=== PATIENT | male | born 1940 | race Caucasian/White ===

== ENCOUNTER 2018-08-23 09:55 | Emergency (ER) | payer OTHER ==
[2018-08-23] MEDS ORDERED: NS 1,000 ML IV ONE (10:19)
[2018-08-23 10:37] LABS: PLATELET COUNT 149 10^3/uL (150-400)
--- NOTE | 2018-08-23 10:50 | EDPHY ---
H & P Stated Complaint: syncope Time Seen by Provider: 08/23/18 10:18 HPI/ROS: CHIEF COMPLAINT: Syncopal episode, diarrhea, lip abrasion HISTORY OF PRESENT ILLNESS: This is a healthy 78-year-old male who developed profuse watery diarrhea during the night. He had multiple episodes of nonbloody diarrhea. Today he was walking to the kitchen to drink water as he felt dehydrated and had a syncopal event. The patient fell and struck his upper lip on a chair. The patient denies any complaints of acute headache. He is not anticoagulated. He denies any recent antibiotic use or travel outside the [place]. The patient takes no regular medications. He has no history of heart or lung disease. Past medical history is only significant for a acoustic neuroma resection and prostate cancer surgery. The patient denies any fever or dysuria. He has no complaints of back pain. He denies any acute numbness or weakness. He has no complaints of neck pain. REVIEW OF SYSTEMS: A comprehensive 10 point review of systems is otherwise negative aside from elements mentioned in the history of present illness. Source: Patient Exam Limitations: No limitations - Personal History Current Tetanus Diphtheria and Acellular Pertussis (TDAP): Yes Tetanus Vaccine Date: 2004 - Medical/Surgical History Hx Asthma: No Hx Chronic Respiratory Disease: No Hx Diabetes: No Hx Cardiac Disease: No Hx Renal Disease: No Hx Cirrhosis: No Hx Alcoholism: No Hx HIV/AIDS: No Hx Splenectomy or Spleen Trauma: No Other PMH: PMH: EAR ISSUES/ ACOUSTIC neuroma, BPH/Prostate removal. - Social History Smoking Status: Never smoked - Physical Exam Exam: General Appearance: Alert, no distress Head: Atraumatic Eyes: Pupils equal, round, reactive ENT, Mouth: Superficial abrasion noted to upper lip, no intraoral laceration noted Neck: Nontender, trachea midline Respiratory: No chest wall tender, no subcutaneous air, lungs clear bilaterally Cardiovascular: Regular rate and rhythm Abdomen: Abdomen is soft and nontender, pelvis stable Skin: No lacerations, No abrasion Back: No midline T/L/S pain Extremities: Nontender, full range of motion Neurological: A&Ox3, normal motor function, normal sensory exam Constitutional: Initial Vital Signs Temperature (C) 36.9 C 08/23/18 10:02 Heart Rate 94 08/23/18 10:02 Respiratory Rate 18 08/23/18 10:02 Blood Pressure 157/80 H 08/23/18 10:02 O2 Sat (%) 94 08/23/18 10:02 O2 Delivery Mode Room Air Allergies/Adverse Reactions: renteria meat Allergy (Uncoded 05/18/15 18:56) Home Medications: Medication Instructions Recorded NK [No Known Home Meds] 08/23/18 Medical Decision Making - Diagnostics EKG Interpretation: EKG: Complete interpretation has been separately recorded in the [employer] archive. Summary impression: Sinus rhythm, rate 93, no ischemic changes or arrhythmia noted ED Course/Re-evaluation: Patient arrives emergency department after syncopal event which resulted in injury to his upper lip. The patient has no evidence of closed head injury. I have cleared his cervical spine via nexus criteria. The patient has no risk factors for Clostridium difficile colitis. Patient has no complaints of chest pain or shortness of breath. The patient's vital signs are stable. The patient 's EKG demonstrates no evidence of an arrhythmia. The remainder of his laboratory studies including serum chemistries, basic metabolic panel and troponin are normal. The patient was placed on a car supplier. He had an IV established. She received 2 L of normal saline. The patient was kept in the emergency department without recurrent symptoms. He is tolerating meals at this point time. He is ambulatory without symptoms of recurrent syncope. Patient will be discharged home after a likely vasovagal episode in the setting of hypokalemia. He has a benign abdominal examination. There is nothing to suggest neuro cardiac pathology. Differential Diagnosis: Differential diagnosis considered includes vasovagal episode, dehydration, anemia, arrhythmia, metabolic derangement - Data Points Laboratory Results: Laboratory Results 08/23/18 10:26 08/23/18 10:26 08/23/18 08/23/18 08/23/18 10:26 10:26 10:08 WBC 5.12 10^3/uL 10^3/uL (3.80-9.50) RBC 5.36 10^6/uL 10^6/uL (4.40-6.38) Hgb 16.3 g/dL g/dL (13.7-17.5) Hct 49.7 % % (40.0-51.0) MCV 92.7 fL fL (81.5-99.8) MCH 30.4 pg pg (27.9-34.1) MCHC 32.8 g/dL g/dL (32.4-36.7) RDW 12.5 % % (11.5-15.2) Plt Count 149 10^3/uL L 10^3/uL (150-400) MPV 10.5 fL fL (8.7-11.7) Neut % (Auto) 79.2 % H % (39.3-74.2) Lymph % (Auto) 13.9 % L % (15.0-45.0) Yates % (Auto) 6.3 % % (4.5-13.0) Eos % (Auto) 0.2 % L % (0.6-7.6) Baso % (Auto) 0.2 % L % (0.3-1.7) Nucleat RBC Rel Count 0.0 % % (0.0-0.2) Absolute Neuts (auto) 4.06 10^3/uL 10^3/uL (1.70-6.50) Absolute Lymphs (auto) 0.71 10^3/uL L 10^3/uL (1.00-3.00) Absolute Monos (auto) 0.32 10^3/uL 10^3/uL (0.30-0.80) Absolute Eos (auto) 0.01 10^3/uL L 10^3/uL (0.03-0.40) Absolute Basos (auto) 0.01 10^3/uL L 10^3/uL (0.02-0.10) Absolute Nucleated RBC 0.00 10^3/uL 10^3/uL (0-0.01) Immature Gran % 0.2 % % (0.0-1.1) Immature Gran # 0.01 10^3/uL 10^3/uL (0.00-0.10) Sodium 137 mEq/L mEq/L (135-145) Potassium 4.2 mEq/L mEq/L (3.5-5.2) Chloride 105 mEq/L mEq/L (97-110) Carbon Dioxide 22 mEq/l mEq/l (22-31) Anion Gap 10 mEq/L mEq/L (6-14) BUN 29 mg/dL H mg/dL (7-23) Creatinine 1.3 mg/dL mg/dL (0.7-1.3) Estimated GFR 53 Glucose 157 mg/dL H mg/dL (70-100) Calcium 8.9 mg/dL mg/dL (8.5-10.4) POC Troponin I 0.00 ng/mL ng/mL (0.00-0.08) Medications Given: Discontinued Medications Sodium Chloride (Ns) 1,000 mls @ 0 mls/hr IV EDNOW ONE; Wide Open PRN Reason: Protocol Stop: 08/23/18 10:20 Last Admin: 08/23/18 10:27 Dose: 1,000 mls Point of Care Test Results: Chemistry 08/23/18 10:08 POC Troponin I 0.00 ng/mL ng/mL (0.00-0.08) Departure - Departure Disposition: Home, Routine, Self-Care Clinical Impression: Vasovagal syncope, Diarrhea, Lip injury Condition: Good Instructions: Acute Diarrhea (ED), Syncope (ED) Additional Instructions: 1. Imodium as needed for diarrhea. 2. Return to the ED for any recurrent passing out, chest pain, difficulty breathing, terrible abdominal pain, bloody stool or other concerns. 3. Follow up with your primary care provider as needed. Referrals: Antoinette Leal MD [Primary Care Provider] - As per Instructions
--- NOTE | 2018-08-23 10:54 | CPEKG ---
Test Reason : OPEN Blood Pressure : / mmHG Vent. Rate : 093 BPM Atrial Rate : 093 BPM P-R Int : 154 ms QRS Dur : 096 ms QT Int : 381 ms P-R-T Axes : 057 012 049 degrees QTc Int : 474 ms Sinus rhythm Confirmed by Daniel Cantor ([id number]) on 08/23/2018 10:54:21 AM Referred By: PHYSICIAN ED Confirmed By:Daniel Cantor
[2018-08-23 11:28] VITALS: BP 161/90
== END 2018-08-23 11:46 | disposition home or self-care (01) ==
LOC: EDUNIT#
DX: R55 Syncope and collapse (principal); S00.511A Abrasion of lip, initial encounter; R19.7 Diarrhea, unspecified; E86.9 Volume depletion, unspecified; W01.190A Fall on same level from slipping, tripping and stumbling with subsequent striking against furniture, initial encounter; Y92.000 Kitchen of unspecified non-institutional (private) residence as the place of occurrence of the external cause; Y93.01 Activity, walking, marching and hiking
CPT/HCPCS: 84484-ER